=== PATIENT | female | born 1945 | race Caucasian/White ===

== ENCOUNTER 2017-06-09 14:23 | Observation (INO) | payer OTHER ==
[~2017-06-09 14:23] MED LIST: AMLO10 PO; CYCL-36 PO; LIPI40TA PO; METF850T PO; PRIN5TAB PO; TRAM50 PO
[2017-06-09 14:27] VITALS: BP 166/78; PULSE 78; RESP 16; TEMP 98.2; O2SAT 97
--- NOTE | 2017-06-09 15:12 | RADRPT ---
EXAM DATE/TIME: 06/09/2017 14:47 [facility] COMPARISON: No previous studies available for comparison. INDICATIONS : Chest pain. MEDICAL HISTORY : Hypertension. Diabetes mellitus type II. SURGICAL HISTORY : None. ENCOUNTER: Initial ACUITY: 1 day PAIN SCORE: 2/10 LOCATION: Bilateral upper chest FINDINGS: PA and lateral views of the chest demonstrate minimal left basilar density. Right lung clear. Heart n ormal in size. The cardiomediastinal contours are unremarkable. Osseous structures are intact. CONCLUSION: Left basal atelectasis. Cosme Jacobo MD on June 09, 2017 at 15:06 Board Certified Radiologist. This report was verified electronically.
[2017-06-09 15:16] LABS: AUTOMATED NEUTROPHIL # 3.7 TH/MM3 (1.8-7.7); BASOPHIL # 0.1 TH/MM3 (0-0.2); BASOPHIL % 1.1 % (0.0-2.0); EOSINOPHIL # 0.2 TH/MM3 (0-0.4); EOSINOPHIL % 2.2 % (0.0-4.0); HEMATOCRIT 40.3 % (35.0-46.0); HEMO FLAGS DIFF FINAL; LYMPH % 40.2 % (9.0-44.0); LYMPHOCYTE # 3.1 TH/MM3 (1.0-4.8); MEAN CELL VOLUME 89.2 FL (80.0-100.0); MEAN CORPUSCULAR HGB CONC 33.7 % (32.0-36.0); MONO % 8.5 % (0.0-8.0); PLATELET COUNT 342 TH/MM3 (150-450); RED BLOOD COUNT 4.52 MIL/MM3 (4.00-5.30); RED CELL DISTRIBUTION WIDTH 12.7 % (11.6-17.2); WHITE BLOOD COUNT 7.8 TH/MM3 (4.0-11.0)
[2017-06-09 15:29] LABS: PROTHROMBIN TIME - PATIENT 9.7 SEC (9.8-11.6)
[2017-06-09 15:40] VITALS: BP 122/64; PULSE 70; RESP 15; O2SAT 100
[2017-06-09 15:42] LABS: ALT (GPT) 26 U/L (10-53); ANION GAP 5 MEQ/L (5-15); AST (GOT) 12 U/L (15-37); BICARBONATE 29.8 MEQ/L (21.0-32.0); BLOOD UREA NITROGEN 9 MG/DL (7-18); CHLORIDE 105 MEQ/L (98-107); GLOMERULAR FILTRATION RATE 81 ML/MIN (>89); MAGNESIUM 1.9 MG/DL (1.5-2.5); POTASSIUM 3.7 MEQ/L (3.5-5.1); SODIUM (NA) 140 MEQ/L (136-145)
[2017-06-09 15:46] LABS: ALKALINE PHOSPHATASE 59 U/L (45-117); TOTAL BILIRUBIN ADULT 0.6 MG/DL (0.2-1.0)
[2017-06-09] MEDS: NITROGLYCERIN 0.4 MG SL 25 TABS/BTL SL SCH ×3 (16:07→16:15)
[2017-06-09 16:16] LABS: CREATINE KINASE 64 U/L (26-192)
--- NOTE | 2017-06-09 16:48 | PD ---
HPI Chief Complaint: Chest Pain Time Seen by Provider: 15:45 Travel History International Travel<30 days: No Contact w/Intl Traveler<30days: No Traveled to known affect area: No History of Present Illness HPI 71-year-old female presents emergency department for evaluation of chest pain that started suddenly this afternoon after she ate lunch. Patient states it felt like pressure midsternal that radiated around to the left shoulder blade. Patient states she felt dizzy, lightheaded and diaphoretic when the chest pain started. Patient denies any abdominal pain, nausea, vomiting. She denies any prior history of OH or CVA. Patient's major medical history as a 2 diabetes, hyperlipidemia and hypertension. Patient has family history of heart disease. Patient's last stress test was 2 years ago and she reports that it was within normal limits at that time. PFSH Past Medical History High Cholesterol: Yes Diabetes: Yes Patient Takes Glucophage: Yes Diminished Hearing: No Hypertension: Yes Respiratory: Yes (SLEEP APNEA WITH CPAP) Tetanus Vaccination: Unknown ?: Not Tubal Ligation: Yes Past Surgical History Surgical History: No Previous Surgery Hysterectomy: Yes Social History Alcohol Use: Yes (2 KRUPA DAILY) Tobacco Use: No Substance Use: No Allergies-Medications (Allergen,Severity, Reaction): Coded Allergies: walnut (Verified Allergy, Severe, Anaphylaxis, 06/09/17) Uncoded Allergies: SULFA (Allergy, Severe, ANAPHYLAXIS, 05/11/09) Reported Meds & Prescriptions Reported Meds & Active Scripts Active Review of Systems Except as stated in HPI: all other systems reviewed are Neg Physical Exam Narrative GENERAL: Well-nourished, well-developed 71-year-old female patient in no obvious distress. Nontoxic appearing. SKIN: Focused skin assessment warm/dry. HEAD: Normocephalic. Atraumatic. EYES: No scleral icterus. No injection or drainage. NECK: Supple, trachea midline. No JVD or lymphadenopathy. CARDIOVASCULAR: Regular rate and rhythm without murmurs, gallops, or rubs. RESPIRATORY: Breath sounds equal bilaterally. No accessory muscle use. GASTROINTESTINAL: Abdomen soft, non-tender, nondistended. MUSCULOSKELETAL: No cyanosis, or edema. BACK: Nontender without obvious deformity. No CVA tenderness. Data Data Last Documented VS Vital Signs Date Time Temp Pulse Resp B/P (MAP) Pulse Ox O2 Delivery O2 Flow Rate FiO2 06/09/17 15:40 68 15 100 Nasal Cannula 2.00 06/09/17 15:40 122/64 (83) 06/09/17 14:27 98.2 Orders Orders Electrocardiogram (06/09/17 14:33) Ckmb (Isoenzyme) Profile (06/09/17 14:33) Complete Blood Count With Diff (06/09/17 14:33) Comprehensive Metabolic Panel (06/09/17 14:33) Magnesium (Mg) (06/09/17 14:33) Prothrombin Time / Inr (Pt) (06/09/17 14:33) Act Partial Throm Time (Ptt) (06/09/17 14:33) Troponin I (06/09/17 14:33) Lipase (06/09/17 14:33) Chest, Pa & Lat (06/09/17 14:33) Nitroglycerin Sl (Nitrostat Sl) (06/09/17 15:45) Admit Order (Ed Use Only) (06/09/17 16:33) Labs Laboratory Tests Test 06/09/17 14:40 White Blood Count 7.8 TH/MM3 Red Blood Count 4.52 MIL/MM3 Hemoglobin 13.6 GM/DL Hematocrit 40.3 % Mean Corpuscular Volume 89.2 FL Mean Corpuscular Hemoglobin 30.0 PG Mean Corpuscular Hemoglobin Concent 33.7 % Red Cell Distribution Width 12.7 % Platelet Count 342 TH/MM3 Mean Platelet Volume 8.5 FL Neutrophils (%) (Auto) 48.0 % Lymphocytes (%) (Auto) 40.2 % Monocytes (%) (Auto) 8.5 % Eosinophils (%) (Auto) 2.2 % Basophils (%) (Auto) 1.1 % Neutrophils # (Auto) 3.7 TH/MM3 Lymphocytes # (Auto) 3.1 TH/MM3 Monocytes # (Auto) 0.7 TH/MM3 Eosinophils # (Auto) 0.2 TH/MM3 Basophils # (Auto) 0.1 TH/MM3 CBC Comment DIFF FINAL Differential Comment Prothrombin Time 9.7 SEC Prothromb Time International Ratio 1.0 RATIO Activated Partial Thromboplast Time 24.0 SEC Blood Urea Nitrogen 9 MG/DL Creatinine 0.71 MG/DL Random Glucose 127 MG/DL Total Protein 7.2 GM/DL Albumin 3.8 GM/DL Calcium Level 9.0 MG/DL Magnesium Level 1.9 MG/DL Alkaline Phosphatase 59 U/L Aspartate Amino Transf (AST/SGOT) 12 U/L Alanine Aminotransferase (ALT/SGPT) 26 U/L Total Bilirubin 0.6 MG/DL Sodium Level 140 MEQ/L Potassium Level 3.7 MEQ/L Chloride Level 105 MEQ/L Carbon Dioxide Level 29.8 MEQ/L Anion Gap 5 MEQ/L Estimat Glomerular Filtration Rate 81 ML/MIN Total Creatine Kinase 64 U/L Troponin I LESS THAN 0.02 NG/ML Lipase 95 U/L MDM Medical Decision Making Medical Screen Exam Complete: Yes Emergency Medical Condition: Yes Differential Diagnosis Differential diagnoses include but not limited to OH, electrolyte abnormality, coronary event, anxiety Narrative Course 71-year-old female presents emergency department for evaluation of chest pain. EKG shows sinus rhythm, blood work showed no acute abnormality, chest x-ray shows left basal atelectasis. Findings were discussed with the patient and it was recommended that she stay in our chest pain center for a stress test in the morning due to the fact that it been 2 years since she last had a stress test. Patient agrees to this plan of care. Patient is admitted to our chest pain center for further evaluation and for a stress test in the morning. Last Impressions Chest X-Ray 06/09/17 1433 Signed Impressions: Service Date/Time: Friday, June 09, 2017 14:47 - CONCLUSION: Left basal atelectasis. Cosme Jacobo MD Diagnosis Primary Impression: Chest pain Qualified Codes: R07.9 - Chest pain, unspecified Admitting Information Admitting Physician Requests: Awa Malagon [facility] Jun 09, 2017 16:48
[2017-06-09 17:25] VITALS: BP 110/56; PULSE 62; RESP 16; O2SAT 98
[2017-06-09] MEDS ORDERED: SODIUM CHLORIDE 0.9% FLUSH 10 ML FLUSH IV FLUSH PRN (18:15)
[2017-06-09 18:54] LABS: CREATINE KINASE 64 U/L (26-192)
[2017-06-09 19:34] VITALS: BP 124/60; PULSE 63; RESP 18; TEMP 98; O2SAT 95
[2017-06-09] MEDS: SODIUM CHLORIDE 0.9% FLUSH 10 ML FLUSH IV FLUSH SCH (21:00)
[2017-06-09 22:58] LABS: CREATINE KINASE 48 U/L (26-192)
[2017-06-10] VITALS (8 sets, daily range): BP systolic 105–148; BP diastolic 57–71; PULSE 61–78; RESP 18–21; TEMP 97.9–98.3; O2SAT 93–99
--- NOTE | 2017-06-10 07:22 | EKG ---
Date Performed: 06/09/2017 Time Performed: 18:22:54 PTAGE: 71 years EKG: Sinus rhythm WITH FIRST DEGREE AV BLOCK ABNORMAL ECG Since PREVIOUS TRACING , no significant change noted PREVIOUS TRACIN06/09/2017 15.01 DOCTOR: Angela Villalpando Interpretating Date/Time 06/10/2017 07:21:48
--- NOTE | 2017-06-10 07:22 | EKG ---
Date Performed: 06/09/2017 Time Performed: 15:01:59 PTAGE: 71 years EKG: Sinus rhythm INCOMPLETE RIGHT BUNDLE BRANCH BLOCK BORDERLINE ECG Since PREVIOUS TRACING , no significant change noted PREVIOUS TRACIN05/11/2009 17.38 DOCTOR: Angela Villalpando Interpretating Date/Time 06/10/2017 07:21:28
--- NOTE | 2017-06-10 07:25 | EKG ---
Date Performed: 06/09/2017 Time Performed: 20:17:24 PTAGE: 71 years EKG: SINUS BRADYCARDIA BORDERLINE ECG Since PREVIOUS TRACING , no significant change noted PREVIOUS TRACIN06/09/2017 15.01 DOCTOR: Angela Villalpando Interpretating Date/Time 06/10/2017 07:22:57
[2017-06-10] MEDS: SODIUM CHLORIDE 0.9% FLUSH 10 ML FLUSH IV FLUSH SCH (09:00)
[2017-06-10] MEDS ORDERED: LIPI40TA PO (09:19)
[2017-06-10] MEDS ORDERED: ASPI1TAB57 PO (09:19)
[2017-06-10] MEDS ORDERED: METF850T PO ×2 (09:19→14:19)
[2017-06-10] MEDS ORDERED: AMLO10TA2 PO (09:19)
[2017-06-10] MEDS ORDERED: LISI-519 PO (09:19)
[2017-06-10] MEDS ORDERED: ASPIRIN EC 81 MG TABEC PO SCH (09:45)
[2017-06-10] MEDS ORDERED: ATORVASTATIN 40 MG TAB PO SCH (09:45)
--- NOTE | 2017-06-10 09:50 | HHI.HP ---
[facility] Primary Care Physician Yaz Bustos MD Chief Complaint Chest pain History of Present Illness This is a 71-year-old female with history of hypertension, hyperlipidemia, and diabetes that presents to ED with a clean of having a central chest discomfort described as a heaviness that began soon after eating lunch with her yesterday. It lasted about 30 minutes. His no shortness breath, nausea, or diaphoresis. Nothing to worsen or improve her symptoms when she had them. Discomfort has not recurred. Patient follows Dr. Villalpando cardiology and an outpatient basis and had a stress test this year. Dr. Villalpando confirmed that she had a nonischemic nuclear stress test December 09, 2016. Review of Systems General: Patient denies fevers, chills recent, and recent travel HEENT: Patient denies headache, sore throat, difficulty swallowing. Cardiovascular: Has the chest discomfort as mentioned above. Denies sensation of heart beating rapidly or irregularly. No syncope. Denies diaphoresis. Respiratory: Denies shortness of breath or inspirational chest discomfort. Denies coughing wheezing or hemoptysis. GI: Patient denies nausea, vomiting, diarrhea, abdominal pain, bloody stools. Musculoskeletal: Patient denies joint pain or edema. Denies calf pain or edema. Neurovascular: Patient denies numbness, tingling, weakness in extremities. Denies headache. Endocrine: Denies polyuria and polydipsia. Hematologic: Denies easy bruising. Skin: Denies rash or itching. Past Family Social History Allergies: Coded Allergies: walnut (Verified Allergy, Severe, Anaphylaxis, 06/09/17) Uncoded Allergies: SULFA (Allergy, Severe, ANAPHYLAXIS, 05/11/09) Past Medical History Hypertension, hyperlipidemia, diabetes. Denies known CAD. Past Surgical History Hysterectomy. His never had cardiac catheterization. Reported Medications Reported Meds & Active Scripts Active Reported Aspirin 81 (Aspirin) 81 Mg Tabdr 81 Mg PO DAILY Metformin (Metformin HCl) 850 Mg Tab 850 Mg PO DAILY With a meal Lipitor (Atorvastatin Calcium) 40 Mg Tab 40 Mg PO DAILY Lisinopril 5 Mg Tab 5 Mg PO HS Amlodipine (Amlodipine Besylate) 10 Mg Tab 10 Mg PO HS Active Ordered Medications Current Medications Medications (Trade) Dose Ordered Sig/Gaurav Route Start Time Stop Time Status Last Admin (NS Flush) 2 ml UNSCH PRN IV FLUSH 06/09/17 18:15 (NS Flush) 2 ml BID IV FLUSH 06/09/17 21:00 06/10/17 09:00 (Norvasc) 10 mg HS PO 06/10/17 21:00 UNV (Ecotrin Ec) 81 mg DAILY PO 06/10/17 09:45 UNV (Lipitor) 40 mg DAILY PO 06/10/17 09:45 UNV (Prinivil) 5 mg HS PO 06/10/17 21:00 UNV Family History There is family history of CAD. Social History Patient quit smoking 20 years ago. Has 1-2 glasses of wine daily. Denies illicit drugs. Physical Exam Vital Signs Vital Signs Date Time Temp Pulse Resp B/P (MAP) Pulse Ox O2 Delivery O2 Flow Rate FiO2 06/10/17 07:18 98.3 68 20 118/71 (87) 96 06/10/17 03:39 98.0 65 18 105/57 (73) 94 06/10/17 01:28 63 06/10/17 01:21 98.0 61 18 116/58 (77) 96 06/09/17 19:34 98.0 63 18 124/60 (81) 95 06/09/17 19:13 06/09/17 17:25 62 16 110/56 (74) 98 Nasal Cannula 2.00 06/09/17 15:40 68 15 100 Nasal Cannula 2.00 06/09/17 15:40 70 15 122/64 (83) 100 Nasal Cannula 2.00 06/09/17 14:27 98.2 78 16 166/78 (107) 97 Physical Exam GENERAL: This is a well-nourished, well-developed patient, in no apparent distress. Patient speaks in clear complete sentences. Patient is pleasant. HEENT: Head is atraumatic and normocephalic. Neck is supple without lymphadenopathy and trachea is midline. No JVD or carotid bruits. CARDIOVASCULAR: Regular rate and rhythm without murmurs, gallops, or rubs. RESPIRATORY: Clear to auscultation. Breath sounds equal bilaterally. No wheezes , rales, or rhonchi. Chest wall is nontender. No use of accessory muscles. GASTROINTESTINAL: Abdomen is nontender, nondistended. Abdomen soft. No obvious pulsatile mass or bruit. No CVA tenderness. Strong femoral pulses bilaterally. Normal bowel sounds in all quadrants. MUSCULOSKELETAL: Patient is moving upper and lower extremities freely. No calf tenderness or edema, no Homans sign. Strong pulses in upper and lower extremities. NEUROLOGICAL: Patient is alert and oriented. Cranial nerves 2-12 are grossly intact. No focal deficits and speech is clear. SKIN: No rash and turgor is normal. Laboratory Laboratory Tests Test 06/09/17 14:40 06/09/17 17:50 06/09/17 21:54 White Blood Count 7.8 Red Blood Count 4.52 Hemoglobin 13.6 Hematocrit 40.3 Mean Corpuscular Volume 89.2 Mean Corpuscular Hemoglobin 30.0 Mean Corpuscular Hemoglobin Concent 33.7 Red Cell Distribution Width 12.7 Platelet Count 342 Mean Platelet Volume 8.5 Neutrophils (%) (Auto) 48.0 Lymphocytes (%) (Auto) 40.2 Monocytes (%) (Auto) 8.5 Eosinophils (%) (Auto) 2.2 Basophils (%) (Auto) 1.1 Neutrophils # (Auto) 3.7 Lymphocytes # (Auto) 3.1 Monocytes # (Auto) 0.7 Eosinophils # (Auto) 0.2 Basophils # (Auto) 0.1 CBC Comment DIFF FINAL Differential Comment Prothrombin Time 9.7 Prothromb Time International Ratio 1.0 Activated Partial Thromboplast Time 24.0 Blood Urea Nitrogen 9 Creatinine 0.71 Random Glucose 127 Total Protein 7.2 Albumin 3.8 Calcium Level 9.0 Magnesium Level 1.9 Alkaline Phosphatase 59 Aspartate Amino Transf (AST/SGOT) 12 Alanine Aminotransferase (ALT/SGPT) 26 Total Bilirubin 0.6 Sodium Level 140 Potassium Level 3.7 Chloride Level 105 Carbon Dioxide Level 29.8 Anion Gap 5 Estimat Glomerular Filtration Rate 81 Total Creatine Kinase 64 64 48 Troponin I LESS THAN 0.02 LESS THAN 0.02 LESS THAN 0.02 Lipase 95 Result Diagram: 06/09/17 1440 06/09/17 1440 Imaging Last 48 hours Impressions Chest X-Ray 06/09/17 1433 Signed Impressions: Service Date/Time: Friday, June 09, 2017 14:47 - CONCLUSION: Left basal atelectasis. Cosme Jacobo MD Course EKGs have sinus rhythm to sinus bradycardia with no significant ST elevations or depressions. Caprini VTE Risk Assessment Caprini VTE Risk Assessment: Mod/High Risk (score >= 2) Caprini Risk Assessment Model Point Value = 1 Point Value = 2 Point Value = 3 Point Value = 5 Age 41-60 Minor surgery BMI > 25 kg/m2 Swollen legs Varicose veins or History of unexplained or recurrent spontaneous Oral contraceptives or hormone replacement Sepsis (< 1 month) Serious lung disease, including pneumonia (< 1 month) Abnormal pulmonary function Acute myocardial infarction Congestive heart failure (< 1 month) History of inflammatory bowel disease Medical patient at bed rest Age 61-74 Arthroscopic surgery Major open surgery (> 45 min) Laparoscopic surgery (> 45 min) Malignancy Confined to bed (> 72 hours) Immobilizing plaster cast Central venous access Age >= 75 History of VTE Family history of VTE Factor V Leiden Prothrombin [id number] Lupus anticoagulant Anticardiolipin antibodies Elevated serum homocysteine Heparin-induced thrombocytopenia Other congenital or acquired thrombophilia Stroke (< 1 month) Elective arthroplasty Hip, pelvis, or leg fracture Acute spinal cord injury (< 1 month) Prophylaxis Regimen Total Risk Factor Score Risk Level Prophylaxis Regimen 0-1 Low Early ambulation 2 Moderate Order ONE of the following: *Sequential Compression Device (SCD) *Heparin 5000 units SQ BID 3-4 Higher Order ONE of the following medications: *Heparin 5000 units SQ TID *Enoxaparin/Lovenox 40 mg SQ daily (WT < 150 kg, CrCl > 30 mL/min) *Enoxaparin/Lovenox 30 mg SQ daily (WT < 150 kg, CrCl > 10-29 mL/min) *Enoxaparin/Lovenox 30 mg SQ BID (WT < 150 kg, CrCl > 30 mL/min) AND/OR *Sequential Compression Device (SCD) 5 or more Highest Order ONE of the following medications: *Heparin 5000 units SQ TID (Preferred with Epidurals) *Enoxaparin/Lovenox 40 mg SQ daily (WT < 150 kg, CrCl > 30 mL/min) *Enoxaparin/Lovenox 30 mg SQ daily (WT < 150 kg, CrCl > 10-29 mL/min) *Enoxaparin/Lovenox 30 mg SQ BID (WT < 150 kg, CrCl > 30 mL/min) AND *Sequential Compression Device (SCD) Assessment and Plan Assessment and Plan * Chest pain: Patient has been seen by Dr. Villalpando cardiology in the chest pain center. Patient had serial cardiac enzymes and EKGs for ruling out purposes. Dr. Villalpando was able to confirm a nonischemic nuclear stress test December 09 of this year in her office. At this time patient will have a CTA of the coronaries. Patient be discharged home if that is unremarkable. Patient should follow-up with her icer air conditioning and her primary care physician. * Hypertension: Continue current medication. * Hyperlipidemia: Continue current medication. * Diabetes: Hold metformin. She will need hold it initially for 48 hours after having a CT scan with contrast. Resume it afterwards. We'll cover with sliding scale insulin coverage while in chest pain center. Patient is stable at this time. She is agreeable to this plan. Isidro Conklin Jun 10, 2017 09:49
[2017-06-10] MEDS ORDERED: DEXTROSE 50% IN WATER 50 ML VIAL(D50) IV PUSH PRN (10:00)
[2017-06-10] MEDS ORDERED: GLUCAGON 1 MG/ML VIAL OTHER PRN (10:00)
[2017-06-10] MEDS ORDERED: NITROGLYCERIN 0.4 MG SL 25 TABS/BTL SL ONE ×3 (10:58→11:15)
[2017-06-10] MEDS ORDERED: INSULIN ASPART SUPPLEMENTAL SCALE SQ SCH (12:00)
[2017-06-10] MEDS ORDERED: IOHEXOL 350 MG/ML 10 ML VIAL (for RAD DIAG) IVCONTRAST ONE (12:55)
--- NOTE | 2017-06-10 13:52 | RADRPT ---
EXAM DATE/TIME: 06/10/2017 11:10 [facility] COMPARISON: No previous studies available for comparison. INDICATIONS : Chest pain IV CONTRAST: 100 cc Omnipaque 350 (iohexol) IV RADIATION DOSE: 4.61 CTDIvol (mGy) MEDICAL HISTORY : Hypertension. Diabetes mellitus type 2. SURGICAL HISTORY : None. ENCOUNTER: Initial ACUITY: 1 day PAIN SCALE: 0/10 LOCATION: chest TECHNIQUE: Volumetric scanning was obtained through the heart. Images were acquired on a multislice multiple ro w detector helical scanner timed for acquisition during peak arterial contrast. Images were reconstr ucted using a retrospective gating algorithm including single sector and multi-sector algorithms at m ultiple phases of the cardiac cycle. Images were interpreted using a combination of 2D and 3D visual ization modes including curved planar reformation, thin slab maximum intensity projection and volume rendering. Using automated exposure control and adjustment of the mA and/or kV according to patient size, radiation dose was kept as low as reasonably achievable to obtain optimal diagnostic quality im ages. DICOM format image data is available electronically for review and comparison. FINDINGS: VESSEL ANALYSIS: DOMINANCE: The coronary system is right dominant. LEFT MAIN: Normal vessel without calcification or stenosis. LAD: Minimal eccentric calcified plaque is identified in the proximal LAD. There is no evidence of signifi cant stenosis. CIRCUMFLEX: Normal vessel without calcification or stenosis. RCA: Mild luminal irregularity is identified in the proximal right coronary artery. There is no evidence o f significant stenosis or calcification. OTHER: None. CONCLUSION: 1. Minimal eccentric plaque in the proximal LAD and mild right coronary artery luminal irregularity. 2. No evidence of hemodynamically significant stenosis. Barney Ha MD on June 10, 2017 at 13:42 Board Certified Radiologist. This report was verified electronically.
--- NOTE | 2017-06-10 14:19 | HHI.DCPOC ---
Discharge Care Plan Diagnosis: (1) Chest pain (2) DM (diabetes mellitus) (3) Hypertension (4) Hyperlipidemia Goals to Promote Your Health Hold metformion for 48 hours. * To prevent worsening of your condition and complications * To maintain your health at the optimal level Directions to Meet Your Goals Take your medications as prescribed Follow your dietary instruction Follow activity as directed Keep your appointments as scheduled Take your immunizations and boosters as scheduled If your symptoms worsen call your PCP, if no PCP go to Urgent Care Center or Emergency Room Smoking is Dangerous to Your Health. Avoid second hand smoke Call the 24-hour hour crisis hotline for domestic abuse at Isidro Conklin Jun 10, 2017 14:19
--- NOTE | 2017-06-10 17:26 | EKG ---
Date Performed: 06/09/2017 Time Performed: 22:34:49 PTAGE: 71 years EKG: ECTOPIC ATRIAL RHYTHM LOW QRS VOLTAGE IN EXTREMITY LEADS POSSIBLE RIGHT VENTRICULAR CONDUCT ION DELAY ABNORMAL QRS-T ANGLE ABNORMAL ECG Since PREVIOUS TRACING , no significant change noted PREVIOUS TRACIN06/09/2017 20.17 DOCTOR: Angela Villalpando Interpretating Date/Time 06/10/2017 17:25:56
[2017-06-10] MEDS ORDERED: LISINOPRIL 5 MG TAB PO SCH (21:00)
== END 2017-06-10 16:19 | disposition home or self-care (01) ==
LOC: NEPC 14:23 → NEDA 16:36 → NEPHCDU 19:05
PROVIDERS: ADMIT Internal Medicine Cardiovascular Disease; ATTEND Internal Medicine Cardiovascular Disease
DX: R07.89 Other chest pain (principal); R61 Generalized hyperhidrosis; R42 Dizziness and giddiness; I10 Essential (primary) hypertension; J98.11 Atelectasis; E78.00 Pure hypercholesterolemia, unspecified; E03.9 Hypothyroidism, unspecified; E11.9 Type 2 diabetes mellitus without complications; R00.1 Bradycardia, unspecified; I45.10 Unspecified right bundle-branch block; I44.0 Atrioventricular block, first degree; R94.31 Abnormal electrocardiogram [ECG] [EKG]; G47.30 Sleep apnea, unspecified; Z79.899 Other long term (current) drug therapy; Z79.82 Long term (current) use of aspirin; Z79.84 Long term (current) use of oral hypoglycemic drugs; Z87.891 Personal history of nicotine dependence; Z82.49 Family history of ischemic heart disease and other diseases of the circulatory system
CPT/HCPCS: 71020; 75574; 80053; 82550; 83690; 83735; 84484; 85025; 85610; 85730; 93005; 99285; G0378; Q9967